=== PATIENT | male | born 1945 | race Asian ===

== ENCOUNTER 2018-06-04 04:53 | Inpatient (IN) | payer MEDICARE ==
[~2018-06-04] VITALS: Ht 165.1 cm; Wt 63.2 kg
[2018-06-04] MEDS ORDERED: ADALAT20 MG ORAL (05:05)
[2018-06-04] MEDS ORDERED: NORMODYNE300 MG ORAL (05:05)
[2018-06-04] MEDS ORDERED: SEROQUEL50 MG ORAL (05:05)
[2018-06-04 05:15] VITALS: BP 148/90
--- NOTE | 2018-06-04 05:15 | NUR ---
ED Nurse Note: Patient BIBA from home with c/o focal seizure. Patient eyes are twitching. Patient eyes are not tracking movement. Patient does not respond to pain. Patient pupils are equal and round but do not respond to light. Per patient's last known well time was 0000 on 06/04/2018. Patient has missed last 2 dialysis appointments. Patient's checked on patient at 0400 and noticed patient to be altered. Patient has equal but weak strength in all extremities. Patient does not respond to pain. Patient seen by JENNIFER at bedside.
--- NOTE | 2018-06-04 05:15 | NUR ---
ED Nurse Note: Patient eyes have deviation towards the right side.
--- NOTE | 2018-06-04 05:20 | NUR ---
ED Nurse Note: Patient taken for head CT with David rojas and clinical staff anesthesiologist.
--- NOTE | 2018-06-04 05:30 | NUR ---
ED Nurse Note: IV access established and blood sent to lab.
[2018-06-04 05:55] LABS: HEMATOCRIT 35.3 % (42.0-52.0); HEMOGLOBIN 11.8 G/DL (14.2-18.0); MEAN CORPUSCULAR VOLUME 90 FL (80-99); PLATELET COUNT 206 K/UL (150-450); RED BLOOD COUNT 3.92 M/UL (4.70-6.10); RED CELL DISTRIBUTION WIDTH 14.2 % (11.6-14.8); WHITE BLOOD COUNT 10.4 K/UL (4.8-10.8)
--- NOTE | 2018-06-04 05:56 | Diagnostic Imaging Report ---
EXAM: CT Head Without Intravenous Contrast CLINICAL HISTORY: CVA TECHNIQUE: Axial computed tomography images of the head/brain without intravenous contrast. CTDI is 70 mGy and DLP is 1463 mGy-cm. One or more of the following dose reduction techniques were used: automated exposure control, adjustment of the mA and/or kV according to patient size, use of iterative reconstruction technique. COMPARISON: No relevant prior studies available. FINDINGS: Brain: There is subarachnoid hemorrhage identified at the interhemispheric fissure. Subdural hematoma also noted along the falx at the interhemispheric fissure. At the left temporal region there is evidence of subarachnoid hemorrhage around a low-density lesion which measures 2.1 x 2.2 cm. There is age-related cerebral volume loss. There is chronic small vessel ischemic disease. Midline shift: No midline shift. Ventricles: Unremarkable. No ventriculomegaly. Bones/joints: Unremarkable. No acute fracture. Soft tissues: Unremarkable. Sinuses: Unremarkable as visualized. No acute sinusitis. Mastoid air cells: Unremarkable as visualized. No mastoid effusion. IMPRESSION: 1. Subarachnoid hemorrhage seen along the fissure for the interhemispheric fissure as well as the left temporal region. Low- density lesion in the left temporal region is identified. MRI of the brain with intravenous contrast suggested for further assessment. 2. Parafalcine subdural hematoma. <MYCVCSECTION> Critical Value Communications 06/04/18 05:59 Call Doctor Regarding Intracranial Hemorrhage, called Romina TEIXEIRA on 06/04 05:58 (-07:00)
[2018-06-04] MEDS ORDERED: levETIRAcetam 1,000mg/NS100ml 100 ML IVPB ONE (06:15)
--- NOTE | 2018-06-04 06:19 | Emergency Room Report ---
History of Present Illness General Chief Complaint: Seizure Source: Family Member, EMS (Floyd Ambrosio MD) Present Illness HPI 72-year-old male presents ED for evaluation. Brought in by EMS status post seizure. at bedside states that she noticed patient to be altered around 4 AM. States last known well time was around midnight. EMS noted that patient had general tonic-clonic seizure activity and was given Versed. Upon arrival patient is not responsive. Gaze to the right. No known history of seizures. History of end-stage renal disease. On dialysis. missed last 2 dialysis sessions. Upon arrival patient no signs of distress. No other aggravating relieving factors. No other associated symptoms (Floyd Ambrosio MD) Allergies: Coded Allergies: No Known Allergies (Unverified , 06/04/18) Patient History Past Medical History: HTN, renal disease, dialysis Past Surgical History: none Pertinent Family History: none Social History: Denies: smoking, alcohol use, drug use Immunizations: UTD Reviewed Nursing Documentation: PMH: Agreed (Floyd Ambrosio MD) Nursing Documentation-PMH Hx Hypertension: Yes Hx Diabetes: Yes Hx Dialysis: Yes - [facility], Sat. L arm AV shunt Hx Seizures: Yes - onset seizure at Jun 04 2018 (Floyd Ambrosio MD) Review of Systems All Other Systems: limited (Floyd Ambrosio MD) Physical Exam Vital Signs Date Time Temp Pulse Resp B/P (MAP) Pulse Ox O2 Delivery O2 Flow Rate FiO2 06/04/18 04:54 98.1 86 20 148/90 98 Room Air Sp02 EP Interpretation: reviewed, normal General Appearance: alert, other - nonverbal Head: normocephalic Eyes: bilateral eye normal inspection, bilateral eye other - fixed pupils ENT: normal ENT inspection Neck: normal inspection Respiratory: chest non-tender, lungs clear, normal breath sounds, speaking full sentences Cardiovascular #1: regular rate, rhythm, no edema Gastrointestinal: normal inspection Rectal: deferred Genitourinary: no CVA tenderness Musculoskeletal: normal inspection Neurologic: other - fixed gaze to right Psychiatric: other - nonverbal Skin: normal inspection Lymphatic: normal inspection (Floyd Ambrosio MD) Medical Decision Making Medicare Attestation The history of Roslyn Pineda has been reviewed and management options for him have been examined and discussed by Floyd Ambrosio. I have personally examined and interviewed the patient. (Floyd Ambrosio MD) Diagnostic Impression: Primary Impression: Subarachnoid bleed Additional Impressions: Subdural hematoma New onset seizure ER Course Patient was noted to have new onset seizure. Laboratory testing showed evidence of hyponatremia. Patient had missed dialysis. Patient was started on IV Keppra. Patient was given rectal Kayexalate. Dr. Nima Art was contacted for inpatient management and was notified of patient's laboratory testing at 6: 49. I left a message with Dr. Chaves's voicemail for neurology consult. (Gabo Kidd MD) EKG Diagnostic Results Rate: normal Rhythm: NSR ST Segments: other ASA given to the pt in ED: No (Floyd Ambrosio MD) Rhythm Strip Diag. Results EP Interpretation: yes Rhythm: NSR, no PVC's, no ectopy (Floyd Ambrosio MD) CT/MRI/US Diagnostic Results CT/MRI/US Diagnostic Results : Imaging Test Ordered: CT head Impression 1. Subarachnoid hemorrhage seen along the fissure for the interhemispheric fissure as well as the left temporal region. Low-density lesion in the left temporal region is identified. MRI of the brain with intravenous contrast suggested for further assessment. 2. Parafalcine subdural hematoma. (Floyd Ambrosio MD) Last Vital Signs Date Time Temp Pulse Resp B/P (MAP) Pulse Ox O2 Delivery O2 Flow Rate FiO2 06/04/18 05:15 86 20 Room Air 06/04/18 05:15 98.1 148/90 98 Status: unchanged (Floyd Ambrosio MD) Disposition: ADMITTED INPATIENT Condition: Serious Referrals: [facility] (PCP) Floyd Ambrosio MD Jun 04, 2018 06:19 Gabo Kidd MD Jun 04, 2018 07:11
[2018-06-04 06:25] LABS: ALANINE AMINOTRANSFERASE 17 U/L (12-78); ALBUMIN 3.5 G/DL (3.4-5.0); ALBUMIN/GLOBULIN RATIO 0.6 (1.0-2.7); ALKALINE PHOSPHATASE 146 U/L (46-116); ANION GAP 16 mmol/L (5-15); ASPARTATE AMINO TRANSFERASE 11 U/L (15-37); BILIRUBIN,TOTAL 1.1 MG/DL (0.2-1.0); BLOOD UREA NITROGEN 114 mg/dL (7-18); CALCIUM 8.9 MG/DL (8.5-10.1); CARBON DIOXIDE 22 MMOL/L (21-32); CHLORIDE 86 MMOL/L (98-107); CHOLESTEROL 149 MG/DL (< 200); CREATININE 10.7 MG/DL (0.55-1.30); HDL CHOLESTEROL 59 MG/DL (40-60); SODIUM 124 MMOL/L (136-145); TRIGLYCERIDES 91 MG/DL (30-150)
[2018-06-04 06:29] LABS: INR 1.1 (0.9-1.1)
--- NOTE | 2018-06-04 06:30 | NUR ---
ED Nurse Note: Patient eyes are no longer deviating to the right, patient pupils are now reactive to light.
--- NOTE | 2018-06-04 06:33 | NUR ---
ED Nurse Note: Patient is moving around. Not responding to voice, but responsive to pain.
[2018-06-04 06:42] VITALS: BP 131/42
[2018-06-04 06:42] LABS: POTASSIUM 7.2 MMOL/L (3.5-5.1)
[2018-06-04 06:43] LABS: BILIRUBIN,DIRECT 0.5 MG/DL (0.0-0.3)
[2018-06-04] MEDS ORDERED: Sodium Polystyrene Sulfonate Enema RECTAL ONE (07:00)
--- NOTE | 2018-06-04 07:37 | NUR ---
ED Nurse Note: Gave telephone report to PATTI Almendarez. Bed unavailable. Will try again.
--- NOTE | 2018-06-04 07:47 | NUR ---
ED Nurse Note: Tried calling for bed, bed unavailable.
--- NOTE | 2018-06-04 08:36 | NUR ---
ED Nurse Note: Transferred pt up to SDU unit. No acute distress noted. Left Er w/ all belongings.
--- NOTE | 2018-06-04 08:49 | NUR ---
NURSE NOTES: received patient report from rusty rn from er. patient came in via gurney assisted by 2 rns. case monitor initiated. vital signs taken and recorded.not in acute distress. mild agitation noted. skin assessment done. no ulcerations, no open skin issues. under the care of dr scott.bed is low and locked for safety. will follow plan of care.
[2018-06-04 09:00] VITALS: BP 135/59
--- NOTE | 2018-06-04 09:04 | NUR ---
NURSE NOTES: left a message to dr scott regarding this patients admission orders.will keep on monitoring.
--- NOTE | 2018-06-04 10:30 | NUR ---
NURSE NOTES: family members and patient refused HD today. dr burnham ordrered to cancel HD. will keep on monitoring.
--- NOTE | 2018-06-04 10:44 | Consultation ---
Consult Note Consult Note ESRD SZ Hematoma: Subdyral and sub Arachnoid Assessment/Plan Comfort care- family decline # [id number] Haresh Christianson MD Jun 04, 2018 10:44
--- NOTE | 2018-06-04 10:49 | NUR ---
NURSE NOTES: family members changed resuscitation code from dnr/dni to dnr with comfort measures.left a message to dr scott regarding this.
[2018-06-04 12:00] VITALS: BP 140/66
--- NOTE | 2018-06-04 13:26 | NUR ---
NURSE NOTES: dr scott made aware of the patients request to remove impacted cerumen in the right ear. dr scott ordered dr dickerson on the case.
--- NOTE | 2018-06-04 14:30 | Consultation ---
DATE OF CONSULTATION: 06/04/2018 RENAL CONSULTATION CONSULTING PHYSICIAN: Haresh Christianson M.D. HISTORY OF PRESENT ILLNESS: I was asked by Dr. Murry, to evaluate the patient for dialysis management. He is a 72-year-old male, who presented to emergency room department by paramedics for seizure and the ER note states that the patient has history of hypertension and end-stage renal disease, on dialysis and apparently there is also a history of renal cell carcinoma with metastasis. The patient has not received any dialysis for the past two sessions. Originally, the note of the emergency room stated that the would like to have continued dialysis so a stat dialysis was ordered and I rushed to see the patient in room 244 where the patient's family were in the room and the patient lying in bed. PHYSICAL EXAMINATION: VITAL SIGNS: Blood pressure of 107/53, pulse rate of 55, temperature of 98.2, and respiratory rate of 24. GENERAL: The patient is pale, weak, nonresponsive. HEART: Bradycardic. Irregular. LUNGS: Bilateral rhonchi. ABDOMEN: Slightly distended. LABORATORY DATA: The initial laboratory data, hemoglobin 11.8. Potassium 7.2, BUN 114, creatinine 10.7, and glucose of 324, with calcium of 8.9. IMPRESSION AND PLAN: The patient has end-stage renal disease, missed two dialysis and in need of urgent dialysis for hyperkalemia. At the same time, the patient was found to have subdural hematoma and subarachnoid bleed and new onset of seizure. The family in the room stated to me that it has been the patient's wishes not to stop dialysis this is why he did not show up for the last two dialysis sessions and when I presented them with the current state of the patient and the need for dialysis, they declined and stated that we would like to respect the patient's wishes and withhold dialysis. So the emergency dialysis that I ordered initially was canceled and it appears that the patient will continue to be on comfort measures. So, at this point, I do not have any further suggestions from renal standpoint of view to add to this patient and we will either stop following or follow as needed. Haresh Christianson M.D. DR: GISELLE JOB#: [id number] CC:
--- NOTE | 2018-06-04 14:37 | NUR ---
NURSE NOTES: left a message to claudia dickerson regarding patient impacted cerumen of the right ear. awaits callback and new order as of this time.
[2018-06-04 16:00] VITALS: BP 131/65
--- NOTE | 2018-06-04 16:08 | Consultation ---
History of Present Illness General Chief Complaint: Seizure Present Illness Allergies: Coded Allergies: No Known Allergies (Unverified , 06/04/18) Medication History Scheduled Labetalol HCl (Labetalol HCl), 300 MG ORAL EVERY 12 HOURS, (Reported) Nifedipine (Nifedipine*), 30 MG ORAL EVERY 8 HOURS, (Reported) Quetiapine Fumarate (Seroquel), 50 MG ORAL DAILY, (Reported) Patient History Healthcare decision maker Resuscitation status Do Not Resuscitate Advanced Directive on File No Physical Exam Last 24 Hour Vital Signs Date Time Temp Pulse Resp B/P (MAP) Pulse Ox O2 Delivery O2 Flow Rate FiO2 06/04/18 15:19 53 06/04/18 12:00 96.3 57 26 140/66 (90) 06/04/18 11:50 Nasal Cannula 3.0 06/04/18 11:45 53 06/04/18 09:05 56 06/04/18 09:04 Nasal Cannula 2.0 06/04/18 09:00 96.4 53 26 135/59 (84) 06/04/18 08:36 98.2 55 24 107/53 90 Simple Mask 10.0 06/04/18 06:42 98.1 54 19 131/42 98 Room Air 06/04/18 05:15 86 20 Room Air 06/04/18 05:15 98.1 86 20 148/90 98 Room Air 06/04/18 04:54 98.1 86 20 148/90 98 Room Air Intake and Output 06/03/18 06/04/18 19:00 07:00 Intake Total 0 ml Balance 0 ml Intake Oral 0 ml Laboratory Tests Test 06/04/18 05:45 White Blood Count 10.4 K/UL (4.8-10.8) Red Blood Count 3.92 M/UL (4.70-6.10) L Hemoglobin 11.8 G/DL (14.2-18.0) L Hematocrit 35.3 % (42.0-52.0) L Mean Corpuscular Volume 90 FL (80-99) Mean Corpuscular Hemoglobin 30.2 PG (27.0-31.0) Mean Corpuscular Hemoglobin Concent 33.6 G/DL (32.0-36.0) Red Cell Distribution Width 14.2 % (11.6-14.8) Platelet Count 206 K/UL (150-450) Mean Platelet Volume 6.1 FL (6.5-10.1) L Neutrophils (%) (Auto) % (45.0-75.0) Lymphocytes (%) (Auto) % (20.0-45.0) Monocytes (%) (Auto) % (1.0-10.0) Eosinophils (%) (Auto) % (0.0-3.0) Basophils (%) (Auto) % (0.0-2.0) Differential Total Cells Counted 100 Neutrophils % (Manual) 90 % (45-75) H Lymphocytes % (Manual) 7 % (20-45) L Monocytes % (Manual) 3 % (1-10) Eosinophils % (Manual) 0 % (0-3) Basophils % (Manual) 0 % (0-2) Band Neutrophils 0 % (0-8) Platelet Estimate Adequate Platelet Morphology Normal Red Blood Cell Morphology Normal Prothrombin Time 11.5 SEC (9.30-11.50) Prothromb Time International Ratio 1.1 (0.9-1.1) Activated Partial Thromboplast Time 31 SEC (23-33) Sodium Level 124 MMOL/L (136-145) L Potassium Level 7.2 MMOL/L (3.5-5.1) *H Chloride Level 86 MMOL/L (98-107) L Carbon Dioxide Level 22 MMOL/L (21-32) Anion Gap 16 mmol/L (5-15) H Blood Urea Nitrogen 114 mg/dL (7-18) H Creatinine 10.7 MG/DL (0.55-1.30) H Estimat Glomerular Filtration Rate mL/min (>60) Glucose Level 324 MG/DL (74-106) H Calcium Level 8.9 MG/DL (8.5-10.1) Total Bilirubin 1.1 MG/DL (0.2-1.0) H Direct Bilirubin 0.5 MG/DL (0.0-0.3) H Aspartate Amino Transf (AST/SGOT) 11 U/L (15-37) L Alanine Aminotransferase (ALT/SGPT) 17 U/L (12-78) Alkaline Phosphatase 146 U/L (46-116) H Troponin I 0.060 ng/mL (0.000-0.056) Total Protein 9.8 G/DL (6.4-8.2) H Albumin 3.5 G/DL (3.4-5.0) Globulin 6.3 g/dL Albumin/Globulin Ratio 0.6 (1.0-2.7) L Triglycerides Level 91 MG/DL (30-150) Cholesterol Level 149 MG/DL (< 200) LDL Cholesterol 83 mg/dL (<100) HDL Cholesterol 59 MG/DL (40-60) Cholesterol/HDL Ratio 2.5 (3.3-4.4) L Height (Feet): 5 Height (Inches): 5.00 Weight (Pounds): 140 Medications Current Medications Medications (Trade) Dose Ordered Sig/Montez Route PRN Reason Start Time Stop Time Status Last Admin Dose Admin Levetiracetam 100 ml @ 400 mls/hr Q12HR IVPB 06/04/18 21:00 07/04/18 20:59 Assessment/Plan Assessment/Plan Hematology/Onc Consult Chief Complaint: Seizure Source: Family Member, EMS RFC: Temporal lone lesion, hyperproteinemia DOS: 06/04/18 REQ MD: Nima Murry HPI 72-year-old male presents ED for evaluation. Brought in by EMS status post seizure. at bedside states that she noticed patient to be altered around 4 AM. States last known well time was around midnight. EMS noted that patient had general tonic-clonic seizure activity and was given Versed. Upon arrival patient is not responsive. Gaze to the right. No known history of seizures. History of end-stage renal disease. On dialysis. missed last 2 dialysis sessions. Upon arrival patient no signs of distress. No other aggravating relieving factors. No other associated symptoms, per family they do not want dialysis, has been seen by renal, and onc consulted for elev protein and brain lesion Allergies: No Known Allergies (Unverified , 06/04/18) Past Medical History: HTN, renal disease, dialysis Past Surgical History: none Pertinent Family History: none Social History: Denies: smoking, alcohol use, drug use Immunizations: UTD Reviewed Nursing Documentation: PMH: Agreed Hx Hypertension: Yes Hx Diabetes: Yes Hx Dialysis: Yes - Tue,Thur, Sat. L arm AV shunt Hx Seizures: Yes - onset seizure at Jun 04 2018 Review of Systems: limited PE Vital Signs Date Time Temp Pulse Resp B/P (MAP) Pulse Ox O2 Delivery O2 Flow Rate FiO2 06/04/18 04:54 98.1 86 20 148/90 98 Room Air Sp02 EP Interpretation: reviewed, normal General Appearance: alert, other - nonverbal Head: normocephalic Eyes: bilateral eye normal inspection, fixed pupils ENT: normal ENT inspection Neck: normal inspection Respiratory: chest non-tender, lungs clear, normal breath s Cardiovascular: regular rate, rhythm, no edema Gastrointestinal: normal inspection Rectal: deferred Genitourinary: no CVA tenderness Neurologic: other - fixed gaze to right Psychiatric: other - nonverbal Skin: normal inspection Lymphatic: normal inspection Labs reviewed Meds reviewed Assessment and Recs: # Temporal lobe lesion, on. Low-density lesion in the left temporal region is identified. MRI of the braim with intravenous contrast suggested for further assessmen --> as per neurology evaluation, Dr. Chaves consulted --> in addition, on antiepileptic medications for patient's seizures --> restart meds as needed # Hyperproteinemia, could be 2/2 inflammatory process versus r/o myeloma or other protein secretory disease --> at this time, minimize extesnive lab tests but obtain a spep # Subarachnoid bleed w/ Subdural hematoma with New onset seizure --> as per neuro eval # ESRD requiring HD --> patient and his family have been refusing HD --> comofrt care measures unless notified otherwise # Hyponatremia as per renal The timing of this note does not necessarily reflect the time of the patient was seen. Greatly appreciate consultation! Cezar Eller MD Jun 04, 2018 16:08
--- NOTE | 2018-06-04 16:34 | NUR ---
NURSE NOTES: left a message to dr squires regarding patients HR on the 402 & 50s as per order by dr scott. awaits callback and new order.
--- NOTE | 2018-06-04 16:39 | NUR ---
NURSE NOTES: dr squires called back and ordered to hold all BP meds and just observe..will take note and carry out.
--- NOTE | 2018-06-04 19:15 | NUR ---
NURSE NOTES: Pt Report received from Tanesha ARMSTRONG. Pt appears to be resting comfortably in bed, no distress noted. Pt is alert and oriented times 1. Pt is NPO except for Medications. Pt has a Left upper arm fistula with buit and thrill noted. Pt has a night monitor is on and active, no signs or symptoms of cardiac distress noted. Pt is on a Nasal Canula 3L with no respiratory distress noted, saturating at 99 percent. Pt has a R forearm 20G that is patent and able to flush, no abnormalities noted. Pt is anuric and has a condom catheter that is in tact and able to drain to gravity. Family members are at bed side as of now. Will continue plan of care.
--- NOTE | 2018-06-04 19:26 | NUR ---
HAND-OFF: Report given to giorgio kitchen.
[2018-06-04 20:00] VITALS: BP 124/52
[2018-06-04] MEDS ORDERED: levETIRAcetam 500mg/NS100ml 100 ML IVPB SCH (21:00)
[2018-06-05] VITALS: BP 140/67
--- NOTE | 2018-06-05 03:30 | Consultation ---
DATE OF CONSULTATION: 06/04/2018 NEUROLOGIC CONSULTATION: CONSULTING PHYSICIAN: Ilan Chaves M.D. 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 The patient was admitted with a chief complaint of 1 seizure. HISTORY OF PRESENT ILLNESS: The patient never had a seizure before. He has a history of head injuries. He had had a stroke 4 to 5 years ago with some abnormal movements on the left side, little unclear. Recently, there is no fever and chills and the patient has become more confused in the last 2 to 3 days since he refused dialysis. Four days ago, he had a headache. This morning at around 4 a.m., he turned his head to the right side and he had some olesya-clonic movement lasting 30 seconds. He may have had couple of repeat seizures. The EMS noted that the patient did have a generalized tonic-clonic seizure and was given Versed. He was brought to this hospital unresponsive. CT scan of the brain, noncontrast, was abnormal, revealed subarachnoid hemorrhage in the interhemispheric fissure and subdural hematoma, noted along the falx in the interhemispheric fissure. There is evidence of subarachnoid hemorrhage around the low-density lesion, which measures 2.1 x 2.2 cm. Age-related volume loss. There is no midline shift. The patient had a hemoglobin of 11.8 with a platelet count of 206,000, white count 10,400. He had a left shift. His chemistries were normal except for the following: His potassium is 7.2, his chloride was 86, his anion gap was 16, his BUN was 114, his creatinine was 10.7, his glucose was 324, total bilirubin was 1.1 with direct bilirubin of 0.5, AST was 11, alkaline phosphatase was 146. His troponin was 0.060. Total protein was 9.8. His cholesterol/HDL ratio was 2.5. PT and PTT were normal. The patient's EEG revealed possible left atrial enlargement, nonspecific intraventricular block, nonspecific T-wave abnormality, and sinus arrhythmia with first-degree AV block. The chest x-ray was done. The patient was given lorazepam 1000 mg 1 dose. No history of peripheral neuropathy in this patient. No other history could be obtained. The patient's mother and father of strokes. PAST MEDICAL HISTORY/PAST MEDICAL ILLNESSES: 1. 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 2. Renal carcinoma, see above. 3. Hypertension and diabetes with end-stage renal disease, see above. 4. Deafness, especially in the right ear with impaction. 5. Chronic subdural hematoma, see above. . FAMILY HISTORY: See above. His siblings are "old" and still alive. GAIT: He had a left . REVIEW OF SYSTEMS: . Rest of the review of systems is noncontributory. PHYSICAL EXAMINATION: GENERAL: He is a well-developed, chronically ill-appearing male, lying in bed, moving on his left side. The patient is a [place]. VITAL SIGNS: Blood pressure 107/53, his pulse is 65, his temperature is 98.2 degrees, respiration rate is 24, pulse oximetry is between 90 to 98 on nasal cannula. HEENT: Examination of the head is difficult to examine. He has poor dentition. NECK: Stiff in all directions. The is no obvious pain. His carotids are at least +1 to +2 on the left, on the right is difficult to evaluate. There is no bruit appreciated. LUNGS: Clear to auscultation. CARDIOVASCULAR: PMI is not felt. JVP is not seen. The patient had normal S1. S2 is physiologically split. There is no S3, S4, murmurs, or rubs appreciated. ABDOMEN: The abdomen is soft and nontender. We could be appreciate any . BACK: There is no tenderness to percussion. EXTREMITIES: The peripheral pulses are decreased in the extremities. There is no edema noted. NEUROLOGIC: MENTAL STATUS: The patient is lethargic, but opens his eyes. No increased . There is no response to . CRANIAL NERVE EXAMINATION: CRANIAL NERVE II: Visual lindsay are probably intact grossly to confrontation. CRANIAL NERVES III, IV, AND : The eyes are in the midline. Doll's eye could not done. Pupils are about 4 mm, round, and briskly reactive. CRANIAL NERVE V: Corneal sensation appears to be intact. CRANIAL NERVE VII: Eye closure could not be tested on the right side. Otherwise, face appeared to be symmetrical. CRANIAL NERVES VIII THROUGH XII: Could not be tested. . MUSCLE EXAMINATION: Muscle bulk is symmetrically decreased. Tone is increased in all 4 extremities. all 4 extremities with upgoing toes and can move all 4 extremities. REFLEXES: 0 in the upper and lower extremities with upgoing toes and testing for Babinski response. SENSORY: Decreased to deep pain distally in the extremity. IMPRESSION: This patient has rather metastatic lesion . The seizure that he had was probably related to his brain along with his end-stage renal disease and/or chronic subdurals or acute hemorrhage. No further workup is necessary. PLAN: 1. I will speak to you about this case. 2. Continue Keppra for the time being 250 mg b.i.d. Ilan Chaves MD DR: SHAWNA JOB#: [id number] CC:
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
--- NOTE | 2018-06-05 03:30 | Consultation ---
DATE OF CONSULTATION: 06/04/2018 NOTE: POOR AUDIO ENDOCRINOLOGY CONSULTATION CONSULTING PHYSICIAN: Cornell Hunter M.D. REASON FOR CONSULTATION: Diabetes management. HISTORY OF PRESENT ILLNESS: The patient is an unfortunate 72-year-old male with a history of end-stage renal disease on hemodialysis, who was brought by EMS status post seizure and noted altered mental status around 4 a.m. and the paramedics state the patient has a tonic-clonic seizure. The patient was admitted to the floor where evaluated by Dr. Christianson, billing typist and apparently the patient's family refusing HD and seeking comfort measures. PAST MEDICAL HISTORY: 1. Hypertension. 2. Diabetes. 3. End-stage renal disease, on hemodialysis. PAST SURGICAL HISTORY: Dialysis access placement. FAMILY HISTORY: Noncontributory. SOCIAL HISTORY: No smoking, alcohol, or drug use. REVIEW OF SYSTEMS: Unobtainable. MEDICATIONS: Reviewed and reconciled. LABORATORY DATA: Sodium 124, potassium 7.2, chloride 86, bicarb 22, BUN 114, creatinine of 7.7, glucose of 324, calcium of 8.9. Alkaline phosphatase 146. Total protein 9.8. Troponin 0.06. CBC shows WBC of 10, PHYSICAL EXAMINATION: VITAL SIGNS: Blood pressure is 107/52, pulse 80, temperature of 98.2, respiratory rate of 18. HEENT: Pupils are reactive. NECK: No JVD. HEART: RRR. LUNGS: Decreased breath sounds. ABDOMEN: Positive bowel sounds. EXTREMITIES: Positive for edema. DIAGNOSES: 1. Diabetes, out of control with a glucose of 324. 2. Severe hyperkalemia. 3. End-stage renal disease, on hemodialysis. 4. Seizure. DISCUSSION: The patient is NPO. The patient's family agreed to comfort care therefore will not order insulin coverage, but if not we will treat the patient with sliding scale insulin in order to keep the blood sugar in range and add basal insulin for further control. We will wait for the patient's final family decision and for now, we will not put any insulin orders. Thank you, Dr. Murry, for the courtesy of this consultation. Cornell Hunter M.D. DR: GALINDO JOB#: [id number] CC: SHERRY
--- NOTE | 2018-06-05 03:55 | NUR ---
HAND-OFF: Report given to Tyson Monsalve Med- Surg.
[2018-06-05 04:00] VITALS: BP 127/79
--- NOTE | 2018-06-05 04:45 | NUR ---
NURSE NOTES: Received report from [facility]. Patient in bed, asleep, nonverbal. Nasal cannula 3 liters. No s/s of pain or discomfort noted. Skin is warm and dry to touch. Abdomen is soft and non distended. Bed in low and locked position. IV site noted. Family is at bedside. Call light is at bedside. Will continue plan of care.
--- NOTE | 2018-06-05 06:44 | General Progress Note ---
Assessment/Plan Problem List: (1) Hyperglycemia ICD Codes: R73.9 - Hyperglycemia, unspecified SNOMED: 51850935 (2) ESRD (end stage renal disease) ICD Codes: N18.6 - End stage renal disease SNOMED: 74627280 (3) Subdural hematoma ICD Codes: S06.5X9A - Traumatic subdural hemorrhage with loss of consciousness of unspecified duration, initial encounter SNOMED: 473816752 (4) Subarachnoid bleed ICD Codes: I60.9 - Nontraumatic subarachnoid hemorrhage, unspecified SNOMED: 749217680 (5) New onset seizure ICD Codes: R56.9 - Unspecified convulsions SNOMED: 62952813 (6) CVA (cerebral vascular accident) ICD Codes: I63.9 - Cerebral infarction, unspecified SNOMED: 588902574 (7) Impacted cerumen of right ear ICD Codes: H61.21 - Impacted cerumen, right ear SNOMED: 94471016 (8) Bradycardia ICD Codes: R00.1 - Bradycardia, unspecified SNOMED: 07243697 Assessment/Plan did not receive dialysis plan for comfort measures noted no need to check glucose or insulin coverage Subjective ROS Limited/Unobtainable: Yes Allergies: Coded Allergies: No Known Allergies (Unverified , 06/04/18) Subjective events noted Objective Last 24 Hour Vital Signs Date Time Temp Pulse Resp B/P (MAP) Pulse Ox O2 Delivery O2 Flow Rate FiO2 06/05/18 04:00 96.9 57 17 127/79 (95) 99 06/05/18 00:00 Nasal Cannula 3.0 06/05/18 00:00 97.6 58 24 140/67 (91) 100 06/05/18 00:00 54 06/04/18 20:00 Nasal Cannula 3.0 06/04/18 20:00 52 06/04/18 20:00 97.6 52 24 124/52 (76) 100 06/04/18 16:00 Nasal Cannula 3.0 06/04/18 16:00 97.6 53 22 131/65 (87) 99 06/04/18 15:19 53 06/04/18 12:00 96.3 57 26 140/66 (90) 06/04/18 11:50 Nasal Cannula 3.0 06/04/18 11:45 53 06/04/18 09:05 56 06/04/18 09:04 Nasal Cannula 2.0 06/04/18 09:00 96.4 53 26 135/59 (84) 06/04/18 08:36 98.2 55 24 107/53 90 Simple Mask 10.0 Intake and Output 06/04/18 06/05/18 19:00 07:00 Intake Total 100 ml Output Total 0 ml 0 ml Balance 0 ml 100 ml IV Total 100 ml Output Urine Total 0 ml 0 ml # Bowel Movements 7 2 Height (Feet): 5 Height (Inches): 5.00 Weight (Pounds): 140 General Appearance: lethargic Neck: normal alignment Cardiovascular: normal rate Respiratory/Chest: decreased breath sounds Abdomen: normal bowel sounds Objective Current Medications Medications (Trade) Dose Ordered Sig/Montez Route PRN Reason Start Time Stop Time Status Last Admin Dose Admin Levetiracetam 100 ml @ 400 mls/hr Q12HR IVPB 06/05/18 09:00 07/04/18 20:59 Cornell Hunter MD Jun 05, 2018 06:44
--- NOTE | 2018-06-05 07:08 | NUR ---
HAND-OFF: Report given to PATTI Bautista.
[2018-06-05 08:00] VITALS: BP 137/72
--- NOTE | 2018-06-05 09:04 | Consultation ---
History of Present Illness General Date patient seen: Jun 05, 2018 Present Illness Allergies: Coded Allergies: No Known Allergies (Unverified , 06/04/18) Medication History Scheduled Labetalol HCl (Labetalol HCl), 300 MG ORAL EVERY 12 HOURS, (Reported) Nifedipine (Nifedipine*), 30 MG ORAL EVERY 8 HOURS, (Reported) Quetiapine Fumarate (Seroquel), 50 MG ORAL DAILY, (Reported) Patient History Healthcare decision maker Resuscitation status Do Not Resuscitate Advanced Directive on File No Physical Exam Last 24 Hour Vital Signs Date Time Temp Pulse Resp B/P (MAP) Pulse Ox O2 Delivery O2 Flow Rate FiO2 06/05/18 08:00 97.7 82 17 137/72 (93) 98 06/05/18 04:00 96.9 57 17 127/79 (95) 99 06/05/18 00:00 Nasal Cannula 3.0 06/05/18 00:00 97.6 58 24 140/67 (91) 100 06/05/18 00:00 54 06/04/18 20:00 Nasal Cannula 3.0 06/04/18 20:00 52 06/04/18 20:00 97.6 52 24 124/52 (76) 100 06/04/18 16:00 Nasal Cannula 3.0 06/04/18 16:00 97.6 53 22 131/65 (87) 99 06/04/18 15:19 53 06/04/18 12:00 96.3 57 26 140/66 (90) 06/04/18 11:50 Nasal Cannula 3.0 06/04/18 11:45 53 06/04/18 09:05 56 06/04/18 09:04 Nasal Cannula 2.0 06/04/18 09:00 96.4 53 26 135/59 (84) Intake and Output 06/04/18 06/05/18 19:00 07:00 Intake Total 100 ml Output Total 0 ml 0 ml Balance 0 ml 100 ml IV Total 100 ml Output Urine Total 0 ml 0 ml # Bowel Movements 7 2 Height (Feet): 5 Height (Inches): 5.00 Weight (Pounds): 140 Medications Current Medications Medications (Trade) Dose Ordered Sig/Montez Route PRN Reason Start Time Stop Time Status Last Admin Dose Admin Levetiracetam 100 ml @ 400 mls/hr Q12HR IVPB 06/05/18 09:00 07/04/18 20:59 Assessment/Plan Assessment/Plan (1) Temporal lobe lesion (2) Subarachnoid bleed w/ Subdural hematoma (3) Alerted mental status seen dictated Ethan Shine Jun 05, 2018 09:04
[2018-06-05] MEDS: levETIRAcetam 500mg/NS100ml 100 ML IVPB SCH ×2 (09:05→21:07)
--- NOTE | 2018-06-05 10:04 | NUR ---
NURSE NOTES: pt in bed with no sob nor in any form of distress noted. no episode of seizure at this time. side rails are padded. at bedside. bed in lowest position. on NC @3L and tolerated well. will continue to monitor
--- NOTE | 2018-06-05 10:11 | NUR ---
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 NEW ONSET SEIZURE VS: BP 148/90, P 54, T 98.0, RR 24, SpO2 90 on SIMPLE MASK FiO2 10.0 RBC 3.92, Hgb 11.8, Hct 35.3, Na 124, K 7.2, BUN 114, CR 10.7, TROPONIN I 0.[address] IMPRESSION: 1. Subarachnoid hemorrhage seen 2. Parafalcine subdural hematoma. IS:LEVETIRACETAM 100ml IVPB ADMITTED TO MED/SURG DCP: RETURN HOME
[2018-06-05 11:06] LABS: BASOPHILS % (AUTO) 1.1 % (0.0-2.0); EOSINOPHILS % (AUTO) 0.2 % (0.0-3.0); HEMATOCRIT 31.7 % (42.0-52.0); HEMOGLOBIN 10.9 G/DL (14.2-18.0); LYMPHOCYTES % (AUTO) 9.1 % (20.0-45.0); MEAN CORPUSCULAR VOLUME 88 FL (80-99); MONOCYTES % (AUTO) 7.6 % (1.0-10.0); NEUTROPHILS % (AUTO) 82.1 % (45.0-75.0); PLATELET COUNT 181 K/UL (150-450); RED BLOOD COUNT 3.61 M/UL (4.70-6.10); RED CELL DISTRIBUTION WIDTH 14.4 % (11.6-14.8); WHITE BLOOD COUNT 10.1 K/UL (4.8-10.8)
[2018-06-05 11:19] LABS: ALANINE AMINOTRANSFERASE 12 U/L (12-78); ALBUMIN/GLOBULIN RATIO 0.5 (1.0-2.7); ALKALINE PHOSPHATASE 105 U/L (46-116); ANION GAP 19 mmol/L (5-15); ASPARTATE AMINO TRANSFERASE 9 U/L (15-37); BILIRUBIN,TOTAL 1.2 MG/DL (0.2-1.0); BLOOD UREA NITROGEN 137 mg/dL (7-18); CALCIUM 8.5 MG/DL (8.5-10.1); CARBON DIOXIDE 19 MMOL/L (21-32); CHLORIDE 91 MMOL/L (98-107); CREATININE 11.8 MG/DL (0.55-1.30); SODIUM 128 MMOL/L (136-145)
[2018-06-05 11:23] LABS: BILIRUBIN,DIRECT 0.6 MG/DL (0.0-0.3); POTASSIUM 7.3 MMOL/L (3.5-5.1)
--- NOTE | 2018-06-05 11:34 | NUR ---
NURSE NOTES: Received call from lab with high potassium result 7.3. Per MD's note, pt is comfort measure only and no further tx needed at this point. will continue to monitor.
[2018-06-05 12:00] VITALS: BP 151/89
--- NOTE | 2018-06-05 15:01 | Nephrology Progress Note ---
Assessment/Plan Problem List: (1) ESRD (end stage renal disease) (2) Subdural hematoma (3) CVA (cerebral vascular accident) (4) New onset seizure Plan DNR Comfort care Subjective ROS Limited/Unobtainable: No Objective Objective Last 24 Hour Vital Signs Date Time Temp Pulse Resp B/P (MAP) Pulse Ox O2 Delivery O2 Flow Rate FiO2 06/05/18 12:00 97.5 83 17 151/89 (109) 100 06/05/18 09:55 Nasal Cannula 3.0 06/05/18 08:00 97.7 82 17 137/72 (93) 98 06/05/18 04:00 96.9 57 17 127/79 (95) 99 06/05/18 00:00 Nasal Cannula 3.0 06/05/18 00:00 97.6 58 24 140/67 (91) 100 06/05/18 00:00 54 06/04/18 20:00 Nasal Cannula 3.0 06/04/18 20:00 52 06/04/18 20:00 97.6 52 24 124/52 (76) 100 06/04/18 16:00 Nasal Cannula 3.0 06/04/18 16:00 97.6 53 22 131/65 (87) 99 06/04/18 15:19 53 Intake and Output 06/04/18 06/05/18 18:59 06:59 Intake Total 100 ml Output Total 0 ml 0 ml Balance 0 ml 100 ml IV Total 100 ml Output Urine Total 0 ml 0 ml # Bowel Movements 7 2 Laboratory Tests 06/05/18 10:50: White Blood Count 10.1, Red Blood Count 3.61L, Hemoglobin 10.9L, Hematocrit 31.7L, Mean Corpuscular Volume 88, Mean Corpuscular Hemoglobin 30.1, Mean Corpuscular Hemoglobin Concent 34.4, Red Cell Distribution Width 14.4, Platelet Count 181, Mean Platelet Volume 6.6, Neutrophils (%) (Auto) 82.1H, Lymphocytes ( %) (Auto) 9.1L, Monocytes (%) (Auto) 7.6, Eosinophils (%) (Auto) 0.2, Basophils (%) (Auto) 1.1, Sodium Level 128L, Potassium Level 7.3*H, Chloride Level 91L, Carbon Dioxide Level 19L, Anion Gap 19H, Blood Urea Nitrogen 137H, Creatinine 11.8H, Estimat Glomerular Filtration Rate , Glucose Level 194#H, Calcium Level 8.5, Total Bilirubin 1.2H, Direct Bilirubin 0.6H, Aspartate Amino Transf (AST/ SGOT) 9L, Alanine Aminotransferase (ALT/SGPT) 12, Alkaline Phosphatase 105, Total Protein 8.5H, Albumin 3.0L, Globulin 5.5, Albumin/Globulin Ratio 0.5L Height (Feet): 5 Height (Inches): 5.00 Weight (Pounds): 140 General Appearance: no apparent distress Respiratory/Chest: decreased breath sounds Abdomen: distended Haresh Christianson MD Jun 05, 2018 15:01
--- NOTE | 2018-06-05 15:49 | NUR ---
*-* INSURANCE *-* ALL CLINICALS AND REVIEWS HAVE BEEN FAXED TO: JOSEFA VICENTE: CARLOS ALBERTO P- [phone] F- [phone]........REVIEW/CLINICAL
[2018-06-05 16:00] VITALS: BP 153/86
--- NOTE | 2018-06-05 16:58 | General Progress Note ---
Assessment/Plan Assessment: Assessment and Recs: # Temporal lobe lesion, on. Low-density lesion in the left temporal region is identified. MRI of the braim with intravenous contrast suggested for further assessmen --> as per neurology evaluation, Dr. Chaves consulted --> in addition, on antiepileptic medications for patient's seizures --> restart meds as needed --> on comfort care # Hyperproteinemia, could be 2/2 inflammatory process versus r/o myeloma or other protein secretory disease --> at this time, minimize extesnive lab tests but obtain a spep # Subarachnoid bleed w/ Subdural hematoma with New onset seizure --> as per neuro eval # ESRD requiring HD --> patient and his family have been refusing HD --> comofrt care measures unless notified otherwise # Hyponatremia as per renal # Comfort care The timing of this note does not necessarily reflect the time of the patient was seen. Greatly appreciate consultation! Subjective HEENT: Denies: no symptoms, eye pain, blurred vision, tearing, double vision, ear pain, ear discharge, nose pain, nose congestion, throat pain, throat swelling, mouth pain, mouth swelling, other Cardiovascular: Denies: no symptoms, chest pain, edema, irregular heart rate, lightheadedness, palpitations, syncope, other Respiratory: Denies: no symptoms, cough, orthopnea, shortness of breath, SOB with excertion, SOB at rest, sputum, stridor, wheezing, other Gastrointestinal/Abdominal: Denies: no symptoms, abdomen distended, abdominal pain, black stools, tarry stools, blood in stool, constipated, diarrhea, difficulty swallowing, nausea, poor appetite, poor fluid intake, rectal bleeding , vomiting, other Genitourinary: Denies: no symptoms, burning, discharge, frequency, flank pain, hematuria, incontinence, pain, urgency, other Allergies: Coded Allergies: No Known Allergies (Unverified , 06/04/18) Subjective 06/05: on comfort care, no events noted, on ivf Objective Last 24 Hour Vital Signs Date Time Temp Pulse Resp B/P (MAP) Pulse Ox O2 Delivery O2 Flow Rate FiO2 06/05/18 16:00 97.3 88 18 153/86 (108) 100 06/05/18 12:00 97.5 83 17 151/89 (109) 100 06/05/18 09:55 Nasal Cannula 3.0 06/05/18 08:00 97.7 82 17 137/72 (93) 98 06/05/18 04:00 96.9 57 17 127/79 (95) 99 06/05/18 00:00 Nasal Cannula 3.0 06/05/18 00:00 97.6 58 24 140/67 (91) 100 06/05/18 00:00 54 06/04/18 20:00 Nasal Cannula 3.0 06/04/18 20:00 52 06/04/18 20:00 97.6 52 24 124/52 (76) 100 Intake and Output 06/04/18 06/05/18 18:59 06:59 Intake Total 100 ml Output Total 0 ml 0 ml Balance 0 ml 100 ml IV Total 100 ml Output Urine Total 0 ml 0 ml # Bowel Movements 7 2 Laboratory Tests 06/05/18 10:50: White Blood Count 10.1, Red Blood Count 3.61L, Hemoglobin 10.9L, Hematocrit 31.7L, Mean Corpuscular Volume 88, Mean Corpuscular Hemoglobin 30.1, Mean Corpuscular Hemoglobin Concent 34.4, Red Cell Distribution Width 14.4, Platelet Count 181, Mean Platelet Volume 6.6, Neutrophils (%) (Auto) 82.1H, Lymphocytes ( %) (Auto) 9.1L, Monocytes (%) (Auto) 7.6, Eosinophils (%) (Auto) 0.2, Basophils (%) (Auto) 1.1, Sodium Level 128L, Potassium Level 7.3*H, Chloride Level 91L, Carbon Dioxide Level 19L, Anion Gap 19H, Blood Urea Nitrogen 137H, Creatinine 11.8H, Estimat Glomerular Filtration Rate , Glucose Level 194#H, Calcium Level 8.5, Total Bilirubin 1.2H, Direct Bilirubin 0.6H, Aspartate Amino Transf (AST/ SGOT) 9L, Alanine Aminotransferase (ALT/SGPT) 12, Alkaline Phosphatase 105, Total Protein 8.5H, Albumin 3.0L, Globulin 5.5, Albumin/Globulin Ratio 0.5L Height (Feet): 5 Height (Inches): 5.00 Weight (Pounds): 140 Objective tation: reviewed, normal General Appearance: alert, other - nonverbal Head: normocephalic Eyes: bilateral eye normal inspection, fixed pupils ENT: normal ENT inspection Neck: normal inspection Resp: chest non-tender, lungs clear, normal breath s CV: regular rate, rhythm, no edema GI: normal inspection Genitourinary: no CVA tenderness Neurologic: other - fixed gaze to right Psychiatric: other - nonverbal Skin: normal inspection Lymphatic: normal inspection Cezar Eller MD Jun 05, 2018 16:58
--- NOTE | 2018-06-05 19:22 | NUR ---
HAND-OFF: Report given to PATTI Langley.
--- NOTE | 2018-06-05 19:23 | NUR ---
NURSE NOTES: Patient in bed, asleep, nonverbal. Nasal cannula 3 liters. No s/s of pain or discomfort noted. Skin is warm and dry to touch. Abdomen is soft and non distended. Bed in low and locked position. IV site noted. Seizure precautions in place with side rails padded. Son is at bedside. Call light is at bedside. Will continue plan of care.
[2018-06-05 20:00] VITALS: BP 154/81
--- NOTE | 2018-06-05 20:07 | Cardiology Progress Note ---
Assessment/Plan Assessment/Plan The patient is seen and examined, full consult note will be dictated soon. Objective Last 24 Hour Vital Signs Date Time Temp Pulse Resp B/P (MAP) Pulse Ox O2 Delivery O2 Flow Rate FiO2 06/05/18 16:00 97.3 88 18 153/86 (108) 100 06/05/18 12:00 97.5 83 17 151/89 (109) 100 06/05/18 09:55 Nasal Cannula 3.0 06/05/18 08:00 97.7 82 17 137/72 (93) 98 06/05/18 04:00 96.9 57 17 127/79 (95) 99 06/05/18 00:00 Nasal Cannula 3.0 06/05/18 00:00 97.6 58 24 140/67 (91) 100 06/05/18 00:00 54 Intake and Output 06/04/18 06/05/18 19:00 07:00 Intake Total 100 ml Output Total 0 ml 0 ml Balance 0 ml 100 ml IV Total 100 ml Output Urine Total 0 ml 0 ml # Bowel Movements 7 2 Laboratory Tests Test 06/05/18 10:50 White Blood Count 10.1 K/UL (4.8-10.8) Red Blood Count 3.61 M/UL (4.70-6.10) L Hemoglobin 10.9 G/DL (14.2-18.0) L Hematocrit 31.7 % (42.0-52.0) L Mean Corpuscular Volume 88 FL (80-99) Mean Corpuscular Hemoglobin 30.1 PG (27.0-31.0) Mean Corpuscular Hemoglobin Concent 34.4 G/DL (32.0-36.0) Red Cell Distribution Width 14.4 % (11.6-14.8) Platelet Count 181 K/UL (150-450) Mean Platelet Volume 6.6 FL (6.5-10.1) Neutrophils (%) (Auto) 82.1 % (45.0-75.0) H Lymphocytes (%) (Auto) 9.1 % (20.0-45.0) L Monocytes (%) (Auto) 7.6 % (1.0-10.0) Eosinophils (%) (Auto) 0.2 % (0.0-3.0) Basophils (%) (Auto) 1.1 % (0.0-2.0) Sodium Level 128 MMOL/L (136-145) L Potassium Level 7.3 MMOL/L (3.5-5.1) *H Chloride Level 91 MMOL/L (98-107) L Carbon Dioxide Level 19 MMOL/L (21-32) L Anion Gap 19 mmol/L (5-15) H Blood Urea Nitrogen 137 mg/dL (7-18) H Creatinine 11.8 MG/DL (0.55-1.30) H Estimat Glomerular Filtration Rate mL/min (>60) Glucose Level 194 MG/DL (74-106) #H Calcium Level 8.5 MG/DL (8.5-10.1) Total Bilirubin 1.2 MG/DL (0.2-1.0) H Direct Bilirubin 0.6 MG/DL (0.0-0.3) H Aspartate Amino Transf (AST/SGOT) 9 U/L (15-37) L Alanine Aminotransferase (ALT/SGPT) 12 U/L (12-78) Alkaline Phosphatase 105 U/L (46-116) Total Protein 8.5 G/DL (6.4-8.2) H Albumin 3.0 G/DL (3.4-5.0) L Globulin 5.5 g/dL Albumin/Globulin Ratio 0.5 (1.0-2.7) L Keanu Medellin MD Jun 05, 2018 20:07
--- NOTE | 2018-06-05 21:50 | General Progress Note ---
Assessment/Plan Status: deteriorating Plan: family wants comfort measure dnr subarachnoid bleeding very poor prognosis dr watson for morphine orders Subjective ROS Limited/Unobtainable: Yes Allergies: Coded Allergies: No Known Allergies (Unverified , 06/04/18) Objective Last 24 Hour Vital Signs Date Time Temp Pulse Resp B/P (MAP) Pulse Ox O2 Delivery O2 Flow Rate FiO2 06/05/18 20:00 97.8 86 17 154/81 (105) 99 06/05/18 16:00 97.3 88 18 153/86 (108) 100 06/05/18 12:00 97.5 83 17 151/89 (109) 100 06/05/18 09:55 Nasal Cannula 3.0 06/05/18 08:00 97.7 82 17 137/72 (93) 98 06/05/18 04:00 96.9 57 17 127/79 (95) 99 06/05/18 00:00 Nasal Cannula 3.0 06/05/18 00:00 97.6 58 24 140/67 (91) 100 06/05/18 00:00 54 Intake and Output 06/04/18 06/05/18 19:00 07:00 Intake Total 100 ml Output Total 0 ml 0 ml Balance 0 ml 100 ml IV Total 100 ml Output Urine Total 0 ml 0 ml # Bowel Movements 7 2 Laboratory Tests 06/05/18 10:50: White Blood Count 10.1, Red Blood Count 3.61L, Hemoglobin 10.9L, Hematocrit 31.7L, Mean Corpuscular Volume 88, Mean Corpuscular Hemoglobin 30.1, Mean Corpuscular Hemoglobin Concent 34.4, Red Cell Distribution Width 14.4, Platelet Count 181, Mean Platelet Volume 6.6, Neutrophils (%) (Auto) 82.1H, Lymphocytes ( %) (Auto) 9.1L, Monocytes (%) (Auto) 7.6, Eosinophils (%) (Auto) 0.2, Basophils (%) (Auto) 1.1, Sodium Level 128L, Potassium Level 7.3*H, Chloride Level 91L, Carbon Dioxide Level 19L, Anion Gap 19H, Blood Urea Nitrogen 137H, Creatinine 11.8H, Estimat Glomerular Filtration Rate , Glucose Level 194#H, Calcium Level 8.5, Total Bilirubin 1.2H, Direct Bilirubin 0.6H, Aspartate Amino Transf (AST/ SGOT) 9L, Alanine Aminotransferase (ALT/SGPT) 12, Alkaline Phosphatase 105, Total Protein 8.5H, Albumin 3.0L, Globulin 5.5, Albumin/Globulin Ratio 0.5L Height (Feet): 5 Height (Inches): 5.00 Weight (Pounds): 140 General Appearance: lethargic, confused Nima Murry MD Jun 05, 2018 21:50
[2018-06-05] MEDS ORDERED: Albuterol/Ipratropium 3ml neb HHN PRN (23:45)
[2018-06-06] VITALS: BP 155/83
[2018-06-06] MEDS ORDERED: Albuterol/Ipratropium 3ml neb HHN PRN
--- NOTE | 2018-06-06 01:30 | Consultation ---
DATE OF CONSULTATION: 06/05/2018 PAIN MANAGEMENT CONSULTATION CONSULTING PHYSICIAN: Elif Woods M.D. REFERRING PHYSICIAN: Nima Murry M.D. PHYSICIAN LABORATORY MANAGER: Merly Cortes CHIEF COMPLAINT: Subarachnoid bleed with subdural hematoma. HISTORY OF PRESENT ILLNESS: The patient is an unfortunate 72-year-old male who is being seen on the Med/Surg floor of [facility]. The patient was admitted through the emergency room due to seizures which happened on Tuesday at 4 a.m. and was found to have general tonic-clonic seizure activity and was started on Versed. However upon arrival to the emergency room, he was unresponsive, has history of end-stage renal disease; however, has missed two dialysis sessions and found to have temporal lobe lesion due to subarachnoid bleed and subdural hematoma. At this time, the patient is in the bed. is at bedside. We were consulted so the patient would have adequate pain control while here in the hospital although he shows no signs of pain or distress at this time. The patient's also denies the patient having any signs of pain or distress. PAST MEDICAL HISTORY: Hypertension, ESRD on dialysis. SOCIAL HISTORY: As per chart, no smoking tobacco, drinking alcohol, or IV drug abuse. ALLERGIES: No known allergies. MEDICATIONS: nifedipine, Seroquel. REVIEW OF SYSTEM: Unable to obtain due to the patient's mental status. PHYSICAL EXAMINATION: GENERAL: The patient is awake. VITAL SIGNS: Blood pressure 139/72, heart rate is 82, oxygen saturation 98%, respirations 18, temperature 97.8 degrees Fahrenheit. LUNGS: Clear bilaterally. HEART: S1 and S2 are regular. ABDOMEN: Soft and nontender. EXTREMITIES: No cyanosis. No clubbing. No edema. ASSESSMENT AND PLAN: This is a 72-year-old male with temporal lobe lesion, subarachnoid bleed with subdural hematoma, altered mental status. The patient will be continued on Keppra as per the neurologist. No opioid medication needed at this time due to the patient showing no signs of pain. The patient was discussed with Dr. Woods and he concurred. We will follow the patient. Thank you very much for the courtesy of this consultation. Elfi Woods M.D. АНДРЕЙ Cortes DR: Don JOB#: [id number] CC: SHERRY
[2018-06-06] MEDS ORDERED: Albuterol/Ipratropium 3ml neb HHN SCH (03:00)
--- NOTE | 2018-06-06 03:30 | NUR ---
NURSE NOTES: Pt received from outgoing RN Naty Rueda in stable condition. Vitas stable. Pt is on 3L nasal Canula. Pt is on comfort focused care. Pt will be turned q2HRs and cleaned as needed. Pt's son is by bedside. Bed locked low in position,side rails up and call light within reach. Pt will be monitored.
[2018-06-06 04:00] VITALS: BP 151/86
--- NOTE | 2018-06-06 06:39 | NUR ---
NURSE NOTES: Pt is in bed, awake and calm. Pt's son by bedside.
--- NOTE | 2018-06-06 07:30 | NUR ---
HAND-OFF: Report given to Michele Valencia RN.Pt is on comfort care. Pt's and son by bedside.
--- NOTE | 2018-06-06 07:39 | General Progress Note ---
Assessment/Plan Assessment: (1) Temporal lobe lesion (2) Subarachnoid bleed w/ Subdural hematoma (3) Alerted mental status Pt will be continued on current medications. Patient shows no signs of pain or distress at this time Due to this pain management will sign off from patients care, however if patient starts showing signs of pain please do not hesitate to reconsult. D/w Dr. Woods and he concurred. Subjective Date patient seen: Jun 06, 2018 Time patient seen: 06:45 - am ROS Limited/Unobtainable: Yes Allergies: Coded Allergies: No Known Allergies (Unverified , 06/04/18) Subjective Patient is in bed showing no signs of pain or distress. Family at bed side. Son inquiring about morphine drip for comfort care. I explained to patient that our service does not recommend morphine drip and that we recommend patient to be seen by hospice care. Son seems to understand. Objective Last 24 Hour Vital Signs Date Time Temp Pulse Resp B/P (MAP) Pulse Ox O2 Delivery O2 Flow Rate FiO2 06/06/18 04:00 97.8 92 18 151/86 (107) 99 06/06/18 00:02 75 18 97 Nasal Cannula 3.0 32 06/06/18 00:00 97.8 87 17 155/83 (107) 97 06/05/18 23:55 32 06/05/18 23:52 72 16 96 Nasal Cannula 3.0 32 06/05/18 21:00 Nasal Cannula 3.0 06/05/18 20:00 97.8 86 17 154/81 (105) 99 06/05/18 16:00 97.3 88 18 153/86 (108) 100 06/05/18 12:00 97.5 83 17 151/89 (109) 100 06/05/18 09:55 Nasal Cannula 3.0 06/05/18 08:00 97.7 82 17 137/72 (93) 98 Intake and Output 06/05/18 06/06/18 19:00 07:00 Intake Total 100 ml Balance 100 ml IV Total 100 ml # Bowel Movements 1 1 Laboratory Tests 06/05/18 10:50: White Blood Count 10.1, Red Blood Count 3.61L, Hemoglobin 10.9L, Hematocrit 31.7L, Mean Corpuscular Volume 88, Mean Corpuscular Hemoglobin 30.1, Mean Corpuscular Hemoglobin Concent 34.4, Red Cell Distribution Width 14.4, Platelet Count 181, Mean Platelet Volume 6.6, Neutrophils (%) (Auto) 82.1H, Lymphocytes ( %) (Auto) 9.1L, Monocytes (%) (Auto) 7.6, Eosinophils (%) (Auto) 0.2, Basophils (%) (Auto) 1.1, Sodium Level 128L, Potassium Level 7.3*H, Chloride Level 91L, Carbon Dioxide Level 19L, Anion Gap 19H, Blood Urea Nitrogen 137H, Creatinine 11.8H, Estimat Glomerular Filtration Rate , Glucose Level 194#H, Calcium Level 8.5, Total Bilirubin 1.2H, Direct Bilirubin 0.6H, Aspartate Amino Transf (AST/ SGOT) 9L, Alanine Aminotransferase (ALT/SGPT) 12, Alkaline Phosphatase 105, Total Protein 8.5H, Albumin 3.0L, Globulin 5.5, Albumin/Globulin Ratio 0.5L Height (Feet): 5 Height (Inches): 5.00 Weight (Pounds): 140 General Appearance: lethargic EENT: pharynx normal Neck: non-tender, supple Cardiovascular: normal peripheral pulses, normal rate Respiratory/Chest: chest wall non-tender, lungs clear Abdomen: non tender, soft Extremities: non-tender Neurologic: unresponsive Skin: warm/dry Ethan Shine Jun 06, 2018 07:39
--- NOTE | 2018-06-06 07:47 | NUR ---
NURSE NOTES: pt in bed with no sob nor in any form of distress noted. family member at bedside. Breathing regular and unlabored. denies any signs of pain at this time. Will continue to monitor
[2018-06-06 08:00] VITALS: BP 159/94
[2018-06-06] MEDS: Albuterol/Ipratropium 3ml neb HHN PRN (08:06)
[2018-06-06] MEDS: levETIRAcetam 500mg/NS100ml 100 ML IVPB SCH ×2 (08:46→21:29)
--- NOTE | 2018-06-06 09:59 | NUR ---
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 NEW ONSET SEIZURE VS: BP 159/94, P 93, T 97.3, RR 18, SpO2 97 on 3.0L O2 NC IS:ALBUTEROL 3ml HHN LEVETIRACETAM 100ml IVPB MED/SURG STATUS
--- NOTE | 2018-06-06 11:29 | Nephrology Progress Note ---
Assessment/Plan Problem List: (1) ESRD (end stage renal disease) (2) Subdural hematoma (3) CVA (cerebral vascular accident) (4) New onset seizure Plan discussed with Son PRN keanu ordered DNR Comfort care Subjective ROS Limited/Unobtainable: No Objective Objective Last 24 Hour Vital Signs Date Time Temp Pulse Resp B/P (MAP) Pulse Ox O2 Delivery O2 Flow Rate FiO2 06/06/18 09:10 Nasal Cannula 3.0 06/06/18 08:16 80 18 99 Nasal Cannula 3.0 32 06/06/18 08:06 64 16 96 Nasal Cannula 3.0 32 06/06/18 08:00 97.3 93 18 159/94 (115) 99 06/06/18 04:00 97.8 92 18 151/86 (107) 99 06/06/18 00:02 75 18 97 Nasal Cannula 3.0 32 06/06/18 00:00 97.8 87 17 155/83 (107) 97 06/05/18 23:55 32 06/05/18 23:52 72 16 96 Nasal Cannula 3.0 32 06/05/18 21:00 Nasal Cannula 3.0 06/05/18 20:00 97.8 86 17 154/81 (105) 99 06/05/18 16:00 97.3 88 18 153/86 (108) 100 06/05/18 12:00 97.5 83 17 151/89 (109) 100 Intake and Output 06/05/18 06/06/18 19:00 07:00 Intake Total 100 ml Balance 100 ml IV Total 100 ml # Bowel Movements 1 1 Height (Feet): 5 Height (Inches): 5.00 Weight (Pounds): 140 General Appearance: other - grimices when moving Haresh Christianson MD Jun 06, 2018 11:29
[2018-06-06 12:00] VITALS: BP 153/80
--- NOTE | 2018-06-06 13:22 | NUR ---
*-* INSURANCE *-* UPDATED CLINICALS AND REVIEWS HAVE BEEN FAXED TO: JOSEFA VICENTE: CARLOS ALBERTO P- [phone] F- [phone]........REVIEW/CLINICAL
--- NOTE | 2018-06-06 15:55 | General Progress Note ---
Assessment/Plan Assessment: Assessment and Recs: # Temporal lobe lesion, on. Low-density lesion in the left temporal region is identified. MRI of the braim with intravenous contrast suggested for further assessmen --> as per neurology evaluation, Dr. Chaves consulted --> in addition, on antiepileptic medications for patient's seizures --> restart meds as needed --> on comfort care # Hyperproteinemia, could be 2/2 inflammatory process versus r/o myeloma or other protein secretory disease --> at this time, minimize extesnive lab tests but obtain a spep # Subarachnoid bleed w/ Subdural hematoma with New onset seizure --> as per neuro eval # ESRD requiring HD --> patient and his family have been refusing HD --> comofrt care measures unless notified otherwise # Hyponatremia as per renal # Comfort care The timing of this note does not necessarily reflect the time of the patient was seen. Greatly appreciate consultation! Subjective Constitutional: Denies: no symptoms, chills, diaphoresis, fever, malaise, weakness, other HEENT: Denies: no symptoms, eye pain, blurred vision, tearing, double vision, ear pain, ear discharge, nose pain, nose congestion, throat pain, throat swelling, mouth pain, mouth swelling, other Cardiovascular: Denies: no symptoms, chest pain, edema, irregular heart rate, lightheadedness, palpitations, syncope, other Respiratory: Denies: no symptoms, cough, orthopnea, shortness of breath, SOB with excertion, SOB at rest, sputum, stridor, wheezing, other Neurologic/Psychiatric: Denies: no symptoms, anxiety, depressed, emotional problems, headache, numbness, paresthesia, pre-existing deficit, seizure, tingling, tremors, weakness, other Endocrine: Denies: no symptoms, excessive sweating, flushing, intolerance to cold, intolerance to heat, increased hunger, increased thirst, increased urine, unexplained weight gain, unexplained weight loss, other Hematologic/Lymphatic: Denies: no symptoms, anemia, easy bleeding, easy bruising, other Allergies: Coded Allergies: No Known Allergies (Unverified , 06/04/18) Subjective 06/05: on comfort care, no events noted, on ivf 06/06: on dilaudid prn, comofrt care, saw and son in the room this am Objective Last 24 Hour Vital Signs Date Time Temp Pulse Resp B/P (MAP) Pulse Ox O2 Delivery O2 Flow Rate FiO2 06/06/18 12:00 97.8 91 18 153/80 (104) 100 06/06/18 09:10 Nasal Cannula 3.0 06/06/18 08:16 80 18 99 Nasal Cannula 3.0 32 06/06/18 08:06 64 16 96 Nasal Cannula 3.0 32 06/06/18 08:00 97.3 93 18 159/94 (115) 99 06/06/18 04:00 97.8 92 18 151/86 (107) 99 06/06/18 00:02 75 18 97 Nasal Cannula 3.0 32 06/06/18 00:00 97.8 87 17 155/83 (107) 97 06/05/18 23:55 32 06/05/18 23:52 72 16 96 Nasal Cannula 3.0 32 06/05/18 21:00 Nasal Cannula 3.0 06/05/18 20:00 97.8 86 17 154/81 (105) 99 06/05/18 16:00 97.3 88 18 153/86 (108) 100 Intake and Output 06/05/18 06/06/18 18:59 06:59 Intake Total 100 ml Balance 100 ml IV Total 100 ml # Bowel Movements 1 1 Height (Feet): 5 Height (Inches): 5.00 Weight (Pounds): 140 Objective tation: reviewed, normal General Appearance: alert, other - nonverbal Head: normocephalic Eyes: bilateral eye normal inspection, fixed pupils ENT: normal ENT inspection Neck: normal inspection Resp: chest non-tender, lungs clear, normal breath s CV: regular rate, rhythm, no edema GI: normal inspection Genitourinary: no CVA tenderness Neurologic: other - fixed gaze to right Psychiatric: other - nonverbal Skin: normal inspection Lymphatic: normal inspection Cezar Eller MD Jun 06, 2018 15:55
[2018-06-06 16:00] VITALS: BP 156/74
--- NOTE | 2018-06-06 16:09 | NUR ---
RESPIRATORY NOTE: NT suctioned pt @1545 per auscultation, revealing mild rhonchi. Pt unable to spontaneously expectorate. Mucus was somewhat thick, red, blood-tinged, and copious. Rn: yanni aware. 02sat wnl/>92%. Son at bedside during procedure. Will continue to closely monitor.
[2018-06-06] MEDS: HYDROmorphone 1mg/ml Carpuject IVP PRN ×2 (16:36→21:30)
--- NOTE | 2018-06-06 18:09 | NUR ---
NURSE NOTES: pt was noted to have bright red phlegm when RT suctioned pt. RN informed Dr. Murry about pt's new condition. At this point, family doesn't want any invasive procedure nor bronchoscopy. Per Dr. Murry, family only wants comfort measures so can't do anything for hemoptysis because of family wishes. HOB elevated, suctioned as needed. Family member at bedside. Will continue to monitor
--- NOTE | 2018-06-06 18:24 | Cardiology Report ---
APPROVED REPORT EKG Measurement Heart [id number] Sinus bradycardia with sinus arrhythmia with 1st degree AV block Possible Left atrial enlargement Nonspecific intraventricular block Nonspecific T wave abnormality Abnormal ECG
--- NOTE | 2018-06-06 19:23 | NUR ---
HAND-OFF: Report given to PATTI Hancock.
[2018-06-06 20:00] VITALS: BP 173/70
--- NOTE | 2018-06-06 20:00 | NUR ---
NURSE NOTES: Received report from Gauri Durand RN. Patient on comfort measures. On nasal cannula. IV intact, patent, and infusing TKO. Family at bedside. Bed in lowest position with call light in reach. Will continue with plan of care.
--- NOTE | 2018-06-06 21:52 | General Progress Note ---
Assessment/Plan Problem List: (1) Subdural hematoma ICD Codes: S06.5X9A - Traumatic subdural hemorrhage with loss of consciousness of unspecified duration, initial encounter SNOMED: 998278479 (2) Subarachnoid bleed ICD Codes: I60.9 - Nontraumatic subarachnoid hemorrhage, unspecified SNOMED: 842187212 (3) New onset seizure ICD Codes: R56.9 - Unspecified convulsions SNOMED: 32239742 (4) Hyperglycemia ICD Codes: R73.9 - Hyperglycemia, unspecified SNOMED: 88117818 (5) ESRD (end stage renal disease) ICD Codes: N18.6 - End stage renal disease SNOMED: 94790858 Status: unchanged Assessment: family doesnt want anything aggressive done they dont want any procedures done either esrd .family doesnt want diaylsis will dc to wherever family wants subdural hematoma no siezure today pain management per dr watson neuro is dr munguia Subjective ROS Limited/Unobtainable: Yes Allergies: Coded Allergies: No Known Allergies (Unverified , 06/04/18) Objective Last 24 Hour Vital Signs Date Time Temp Pulse Resp B/P (MAP) Pulse Ox O2 Delivery O2 Flow Rate FiO2 06/06/18 20:00 95 Nasal Cannula 2.0 28 06/06/18 20:00 Nasal Cannula 2.0 28 06/06/18 20:00 68 18 Nasal Cannula 2.0 28 06/06/18 17:06 98.1 06/06/18 16:00 98.1 70 18 156/74 (101) 100 06/06/18 12:00 97.8 91 18 153/80 (104) 100 06/06/18 09:10 Nasal Cannula 3.0 06/06/18 08:16 80 18 99 Nasal Cannula 3.0 32 06/06/18 08:06 64 16 96 Nasal Cannula 3.0 32 06/06/18 08:00 97.3 93 18 159/94 (115) 99 06/06/18 04:00 97.8 92 18 151/86 (107) 99 06/06/18 00:02 75 18 97 Nasal Cannula 3.0 32 06/06/18 00:00 97.8 87 17 155/83 (107) 97 06/05/18 23:55 32 06/05/18 23:52 72 16 96 Nasal Cannula 3.0 32 Intake and Output 4/15/19 4/16/19 18:59 06:59 Intake Total 100 ml Balance 100 ml IV Total 100 ml # Bowel Movements 1 1 Height (Feet): 5 Height (Inches): 5.00 Weight (Pounds): 140 Cardiovascular: normal rate Respiratory/Chest: lungs clear Abdomen: soft Nima Murry MD Jun 06, 2018 21:52
--- NOTE | 2018-06-06 23:51 | Cardiology Progress Note ---
Assessment/Plan Assessment/Plan The patient is seen and examined, full consult note will be dictated soon. Objective Last 24 Hour Vital Signs Date Time Temp Pulse Resp B/P (MAP) Pulse Ox O2 Delivery O2 Flow Rate FiO2 06/06/18 20:00 95 Nasal Cannula 2.0 28 06/06/18 20:00 Nasal Cannula 2.0 28 06/06/18 20:00 68 18 Nasal Cannula 2.0 28 06/06/18 17:06 98.1 06/06/18 16:00 98.1 70 18 156/74 (101) 100 06/06/18 12:00 97.8 91 18 153/80 (104) 100 06/06/18 09:10 Nasal Cannula 3.0 06/06/18 08:16 80 18 99 Nasal Cannula 3.0 32 06/06/18 08:06 64 16 96 Nasal Cannula 3.0 32 06/06/18 08:00 97.3 93 18 159/94 (115) 99 06/06/18 04:00 97.8 92 18 151/86 (107) 99 06/06/18 00:02 75 18 97 Nasal Cannula 3.0 32 06/06/18 00:00 97.8 87 17 155/83 (107) 97 06/05/18 23:55 32 06/05/18 23:52 72 16 96 Nasal Cannula 3.0 32 Intake and Output 06/05/18 06/06/18 19:00 07:00 Intake Total 100 ml Balance 100 ml IV Total 100 ml # Bowel Movements 1 1 Keanu Medellin MD Jun 06, 2018 23:51
[2018-06-07] VITALS: BP 158/68
[2018-06-07 04:00] VITALS: BP 159/64
[2018-06-07] MEDS: HYDROmorphone 1mg/ml Carpuject IVP PRN ×3 (05:09→21:15)
--- NOTE | 2018-06-07 07:59 | NUR ---
HAND-OFF: Report given to Steph Durand RN.
[2018-06-07 08:00] VITALS: BP 158/65
--- NOTE | 2018-06-07 08:00 | NUR ---
NURSE NOTES: Received patient in bed, oral and nasal suction done. No s/s of pain or discomfort per FLACC pain scale. @ bedside. Bed is in low position and locked. HOB elevated. on oxygen, patient is non-verbal now. left arm precaution for AV shunt.Patient is comfort care. Will continue to monitor for pain. Seizure precaution, side rails padded.
--- NOTE | 2018-06-07 09:55 | NUR ---
Social Work This SW received a consult due to end of life discussion. This Sw met with son, Donnie Pineda ([phone]) and spouse, Elton Valencia ([phone]) who is requesting comfort measures, (Hospice explained). Family explains will take home vs placement if needed (patient has discontinued dialysis eight days ago, according to family expressing concerns patient might not make it to the next destination from the hospital). Emotional support provided to family (currently at bedside).
--- NOTE | 2018-06-07 10:05 | NUR ---
NURSE NOTES: Rn received order from Dr. Murry d/c where ever family wants with home med if clear by Modesta Copeland and Andie any hospice eval ok if family wants. RN spoke to , says she needs to discuss with her sons. Dr. Rockwell said to call Dr. Byers for any respiratory issue.
[2018-06-07] MEDS: levETIRAcetam 500mg/NS100ml 100 ML IVPB SCH ×2 (10:46→20:59)
--- NOTE | 2018-06-07 11:09 | Nephrology Progress Note ---
Assessment/Plan Problem List: (1) ESRD (end stage renal disease) (2) Subdural hematoma (3) CVA (cerebral vascular accident) (4) New onset seizure Plan discussed with Son EVA colunga ordered- more comfortable now DNR Comfort care DC ? Subjective ROS Limited/Unobtainable: Yes Objective Objective Last 24 Hour Vital Signs Date Time Temp Pulse Resp B/P (MAP) Pulse Ox O2 Delivery O2 Flow Rate FiO2 06/07/18 09:00 Nasal Cannula 3.0 06/07/18 08:00 98.0 61 16 158/65 (96) 99 06/07/18 07:44 Nasal Cannula 2.0 28 06/07/18 07:44 94 Nasal Cannula 2.0 28 06/07/18 07:44 45 18 Nasal Cannula 2.0 28 06/07/18 04:00 97.8 64 20 159/64 (95) 99 06/07/18 00:00 98.1 64 20 158/68 (98) 99 06/06/18 21:00 Nasal Cannula 3.0 06/06/18 20:00 95 Nasal Cannula 2.0 28 06/06/18 20:00 98.3 64 20 173/70 (104) 97 06/06/18 20:00 Nasal Cannula 2.0 28 06/06/18 20:00 68 18 Nasal Cannula 2.0 28 06/06/18 17:06 98.1 06/06/18 16:00 98.1 70 18 156/74 (101) 100 06/06/18 12:00 97.8 91 18 153/80 (104) 100 Intake and Output 06/06/18 06/07/18 19:00 07:00 # Bowel Movements 1 Height (Feet): 5 Height (Inches): 5.00 Weight (Pounds): 139 General Appearance: no apparent distress, lethargic Cardiovascular: other - variable Respiratory/Chest: decreased breath sounds Abdomen: distended Haresh Christianson MD Jun 07, 2018 11:09
[2018-06-07 12:00] VITALS: BP 159/67
--- NOTE | 2018-06-07 14:09 | NUR ---
[facility] SI:SUBDURAL HEMATOMA . SUBARACHNOID BLEED VS: BP 159/67, P 45, T 97.9, RR 20, SpO2 100 on 2.0L O2 IS:LEVETIRACETAM 100ml IVPB DILAUDID 1mg IVP MED/SURG STATUS
--- NOTE | 2018-06-07 14:31 | Pulmonology Progress Note ---
Assessment/Plan Assessment/Plan Pulmonary Consultation HPI: The patient is an unfortunate 72-year-old male with subdural and sub arachnoid hemorrhage, has history of end-stage renal disease on hemodialysis, who was brought by EMS status post seizure and noted altered mental status The patient's family has requested comfort measures. PAST MEDICAL HISTORY: 1. Hypertension. 2. Diabetes. 3. End-stage renal disease, on hemodialysis. PAST SURGICAL HISTORY: Dialysis access placement. FAMILY HISTORY: Noncontributory. SOCIAL HISTORY: No smoking, alcohol, or drug use. REVIEW OF SYSTEMS: Unobtainable. MEDICATIONS: Reviewed and reconciled. LABORATORY DATA NOTED: Sodium 124, potassium 7.2, chloride 86, bicarb 22, BUN 114, creatinine of 7.7, glucose of 324, calcium of 8.9. Alkaline phosphatase 146. Total protein 9.8. Troponin 0.06. CBC shows WBC of 10, CT Head noted PHYSICAL EXAMINATION: VITAL SIGNS NOTED, comfortable HEENT: Pupils are reactive. NECK: No JVD. HEART: RRR. LUNGS: Decreased breath sounds. ABDOMEN: Positive bowel sounds. EXTREMITIES: Positive for edema. DIAGNOSES: 1. Diabetes 2. Severe hyperkalemia. 3. End-stage renal disease, on hemodialysis. 4. Subdural and sub arachnoid hemorrhage 5. Seizure. PLAN: The patient's family has requested comfort care O2 PRN Comfort medications Subjective ROS Limited/Unobtainable: No Allergies: Coded Allergies: No Known Allergies (Unverified , 06/04/18) Objective Last 24 Hour Vital Signs Date Time Temp Pulse Resp B/P (MAP) Pulse Ox O2 Delivery O2 Flow Rate FiO2 06/07/18 12:00 97.9 66 15 159/67 (97) 100 06/07/18 09:00 Nasal Cannula 3.0 06/07/18 08:00 98.0 61 16 158/65 (96) 99 06/07/18 07:44 Nasal Cannula 2.0 28 06/07/18 07:44 94 Nasal Cannula 2.0 28 06/07/18 07:44 45 18 Nasal Cannula 2.0 28 06/07/18 04:00 97.8 64 20 159/64 (95) 99 06/07/18 00:00 98.1 64 20 158/68 (98) 99 06/06/18 21:00 Nasal Cannula 3.0 06/06/18 20:00 95 Nasal Cannula 2.0 28 06/06/18 20:00 98.3 64 20 173/70 (104) 97 06/06/18 20:00 Nasal Cannula 2.0 28 06/06/18 20:00 68 18 Nasal Cannula 2.0 28 06/06/18 17:06 98.1 06/06/18 16:00 98.1 70 18 156/74 (101) 100 Intake and Output 06/06/18 06/07/18 19:00 07:00 # Bowel Movements 1 Current Medications Medications (Trade) Dose Ordered Sig/Montez Route PRN Reason Start Time Stop Time Status Last Admin Dose Admin Albuterol/ Ipratropium (Albuterol/ Ipratropium) 3 ml Q4HRT PRN HHN sob, cough 06/06/18 23:55 06/11/18 23:54 06/06/18 08:06 Hydromorphone HCl (Dilaudid) 1 mg Q4H PRN IVP For Pain 06/06/18 11:30 06/13/18 11:29 06/07/18 05:09 Levetiracetam 100 ml @ 400 mls/hr Q12HR IVPB 06/05/18 09:00 07/04/18 20:59 06/07/18 10:46 Nik Byers MD Jun 07, 2018 14:31
--- NOTE | 2018-06-07 15:25 | NUR ---
*-* INSURANCE *-* UPDATED CLINICALS AND REVIEWS HAVE BEEN FAXED TO: JOSEFA VICENTE: CARLOS ALBERTO P- [phone] F- [phone]........REVIEW/CLINICAL
[2018-06-07] MEDS ORDERED: NS 275ml ONE (15:55)
[2018-06-07 16:00] VITALS: BP 164/69
[2018-06-07] MEDS: Albuterol/Ipratropium 3ml neb HHN PRN (16:16)
--- NOTE | 2018-06-07 17:16 | NUR ---
NURSE NOTES: Patient noted with facial grimacing and restlessness. given Dilaudid as ordered. Respiration is 17. Will continue to monitor.
--- NOTE | 2018-06-07 18:03 | NUR ---
NURSE NOTES: Frequent oral care and suction done, re-position @ 2HR. No skin issues.
--- NOTE | 2018-06-07 18:45 | General Progress Note ---
Assessment/Plan Assessment: Assessment and Recs: # Temporal lobe lesion, on. Low-density lesion in the left temporal region is identified. MRI of the braim with intravenous contrast suggested for further assessment --> as per neurology evaluation, Dr. Chaves consulted --> in addition, on antiepileptic medications for patient's seizures --> on comfort care # Hyperproteinemia, could be 2/2 inflammatory process versus r/o myeloma or other protein secretory disease --> at this time, minimize extesnive lab tests but obtain a spep # Subarachnoid bleed w/ Subdural hematoma with New onset seizure --> as per neuro eval --> likely does have a plt dysfunction # ESRD requiring HD --> patient and his family have been refusing HD --> comofrt care measures unless notified otherwise # Hyponatremia as per renal # Comfort care The timing of this note does not necessarily reflect the time of the patient was seen. Greatly appreciate consultation! Subjective Constitutional: Denies: no symptoms, chills, diaphoresis, fever, malaise, weakness, other HEENT: Denies: no symptoms, eye pain, blurred vision, tearing, double vision, ear pain, ear discharge, nose pain, nose congestion, throat pain, throat swelling, mouth pain, mouth swelling, other Cardiovascular: Denies: no symptoms, chest pain, edema, irregular heart rate, lightheadedness, palpitations, syncope, other Respiratory: Denies: no symptoms, cough, orthopnea, shortness of breath, SOB with excertion, SOB at rest, sputum, stridor, wheezing, other Gastrointestinal/Abdominal: Denies: no symptoms, abdomen distended, abdominal pain, black stools, tarry stools, blood in stool, constipated, diarrhea, difficulty swallowing, nausea, poor appetite, poor fluid intake, rectal bleeding , vomiting, other Genitourinary: Denies: no symptoms, burning, discharge, frequency, flank pain, hematuria, incontinence, pain, urgency, other Neurologic/Psychiatric: Denies: no symptoms, anxiety, depressed, emotional problems, headache, numbness, paresthesia, pre-existing deficit, seizure, tingling, tremors, weakness, other Endocrine: Denies: no symptoms, excessive sweating, flushing, intolerance to cold, intolerance to heat, increased hunger, increased thirst, increased urine, unexplained weight gain, unexplained weight loss, other Hematologic/Lymphatic: Denies: no symptoms, anemia, easy bleeding, easy bruising, other Allergies: Coded Allergies: No Known Allergies (Unverified , 06/04/18) Subjective 06/05: on comfort care, no events noted, on ivf 06/06: on dilaudid prn, comofrt care, saw and son in the room this am 06/07: no events, no f/c, no night sweats noted Objective Last 24 Hour Vital Signs Date Time Temp Pulse Resp B/P (MAP) Pulse Ox O2 Delivery O2 Flow Rate FiO2 06/07/18 16:30 67 20 100 Nasal Cannula 3.0 32 06/07/18 16:16 63 16 100 Nasal Cannula 3.0 32 06/07/18 16:00 98.1 62 17 164/69 (100) 100 06/07/18 12:00 97.9 66 15 159/67 (97) 100 06/07/18 09:00 Nasal Cannula 3.0 06/07/18 08:00 98.0 61 16 158/65 (96) 99 06/07/18 07:44 Nasal Cannula 2.0 28 06/07/18 07:44 94 Nasal Cannula 2.0 28 06/07/18 07:44 45 18 Nasal Cannula 2.0 28 06/07/18 04:00 97.8 64 20 159/64 (95) 99 06/07/18 00:00 98.1 64 20 158/68 (98) 99 06/06/18 21:00 Nasal Cannula 3.0 06/06/18 20:00 95 Nasal Cannula 2.0 28 06/06/18 20:00 98.3 64 20 173/70 (104) 97 06/06/18 20:00 Nasal Cannula 2.0 28 06/06/18 20:00 68 18 Nasal Cannula 2.0 28 Intake and Output 06/06/18 06/07/18 19:00 07:00 # Bowel Movements 1 Height (Feet): 5 Height (Inches): 5.00 Weight (Pounds): 139 Objective tation: reviewed, normal General Appearance: alert, other - nonverbal Head: normocephalic Eyes: bilateral eye normal inspection, fixed pupils ENT: normal ENT inspection Neck: normal inspection Resp: chest non-tender, lungs clear, normal breath s CV: regular rate, rhythm, no edema GI: normal inspection Genitourinary: no CVA tenderness Neurologic: other - fixed gaze to right Psychiatric: other - nonverbal Skin: normal inspection Lymphatic: normal inspection Cezar Eller MD Jun 07, 2018 18:45
--- NOTE | 2018-06-07 19:30 | NUR ---
HAND-OFF: Report given to Aura.
[2018-06-07 20:00] VITALS: BP 141/55
--- NOTE | 2018-06-07 20:00 | NUR ---
NURSE NOTES: PATIENT IN BED, DNR/DNI, COMFORT CARE ONLY. ON 3L O2 VIA NC, O2SAT AT 99%. RFA IV INTACT, PATENT. BED IN LOWEST POSITION, LOCKED, ALARMS ON. CALL LIGHT IN REACH. SIDE RAILS PADDED. SLEEPING WITHOUT S/SX OF DISTRESS. FAMILY BY BESIDE. WILL CONT MONITOR THROUGH OUT THE SHIFT.
--- NOTE | 2018-06-07 21:19 | NUR ---
PRONOUNCEMENT: No Code. Called to pronounce patient. Absence of spontaneous respirations, no cardiac or breath sounds on auscultation. Pupils fixed and dilated. No carotid pulse or chest movement. Patient at 211806/07/2018. Raza Dickerson notified PER Aura Randolph Rn. Family was notified at .
--- NOTE | 2018-06-07 22:45 | Consultation ---
DATE OF CONSULTATION: 06/05/2018 CARDIOLOGY CONSULTATION CONSULTING PHYSICIAN: Keanu Medellin M.D. REFERRING PHYSICIAN: Nima Murry M.D. REASON FOR CONSULTATION: Management of elevated troponin I level. HISTORY OF PRESENT ILLNESS: The patient is a very unfortunate 72-year-old gentleman, who was brought in by EMS following seizure activity. According to the patient's , who was at bedside, the patient was noticed to have been altered around 4 a.m. on June 04. The last time that the patient was known to be well was around midnight. The patient according to EMS had a generalized tonic-clonic seizure activity. At the presence of EMS, he was given Versed. Upon arrival to the emergency department, he was not responsive and had a gaze to the right. There was no prior history of seizures. The patient however has history of end-stage renal disease, on dialysis. Apparently, the patient missed two dialysis sessions. Upon arrival to the emergency department, the patient was not in respiratory distress. However, the blood pressure was 148/90 mmHg and heart rate was 86. He was afebrile. Initial laboratory findings showed a potassium of 7.2, sodium of 124, and BUN and creatinine of 114 and 10.7 respectively. Troponin I level was elevated at 0.06. The patient was admitted to intensive care unit for further evaluation and management. Cardiology consultation was made at request of Dr. Murry for evaluation and management of a troponin level. In the emergency department, the patient undergoes a CT of head, which shows subarachnoid hemorrhage. A 12-lead electrocardiogram was significant for sinus rhythm with no acute ischemic changes. PAST MEDICAL HISTORY: 1. Hypertension. 2. End-stage renal disease on hemodialysis. SOCIAL HISTORY: No prior history of tobacco, alcohol, or illicit drug use. PAST SURGICAL HISTORY: AV shunt placement. ALLERGIES: No known drug allergies. FAMILY HISTORY: No premature coronary artery disease in first-degree relatives. MEDICATIONS: List of medications at home, labetalol 300 mg p.o. twice daily, nifedipine 30 mg p.o. q. 8 h., and Seroquel 50 mg p.o. daily. REVIEW OF SYSTEMS: HEENT: Denies any headache, diplopia, blurred vision, although he has seizure activity. CONSTITUTIONAL: Denies any fever, chills, night sweats, or weight loss. CARDIOVASCULAR: Denies any chest pain, shortness breath, PND, orthopnea, or leg swelling. PULMONARY: Denies any cough, hemoptysis, or wheezing. GASTROINTESTINAL: Denies any nausea, vomiting, diarrhea, constipation, abdominal pain, or GI bleed. GENITOURINARY: Denies any hematuria, dysuria, or incontinence. NEUROLOGY: Somewhat altered, mostly confusion. Denies any signs of lateralization. Denies any sensory deficit or altered speech. Denies any sensory deficit or motor dysfunction. PHYSICAL EXAMINATION: VITAL SIGNS: Blood pressure at time of arrival to the hospital 148/90, respirations 20, pulse of 86, temperature of 98.1 degrees Fahrenheit, and O2 saturation 98% on room air. GENERAL: The patient is a very unfortunate 72-year-old gentleman, in no apparent respiratory distress. Somewhat confused. HEENT: Atraumatic and normocephalic. Anicteric. Pupils are equal, round, and reactive to light and accommodation. Extraocular muscles intact. NECK: JVP is less than 5 cm. No carotid bruit. Carotid upstroke is 2+ bilaterally. CARDIOVASCULAR: Normal S1, S2. Regular rate and rhythm. No murmurs, gallops, or rubs. LUNGS: Clear to auscultation bilaterally. ABDOMEN: Soft, nontender, and nondistended. No hepatosplenomegaly. Positive bowel sounds. EXTREMITIES: No evidence of edema, clubbing, or cyanosis. LABORATORY FINDINGS: Sodium is 124, potassium is 7.2, chloride 86, bicarbonate 22, BUN of 114, creatinine 10.7, glucose 324. Troponin I 0.060. Triglyceride 91, cholesterol 149, LDL of 83, and HDL of 59. INR is 1.1. A 12-lead electrocardiogram showed sinus bradycardia with sinus arrhythmia, first-degree AV block, left atrial enlargement, nonspecific intraventricular block, nonspecific T-wave abnormalities. ASSESSMENT AND PLAN: The patient is a very unfortunate 72-year-old gentleman, seen in Cardiology consultation. 1. Slight elevation of troponin I level in this patient most likely secondary to troponin leak associated with end-stage renal disease. At this time, given the fact that the patient's wishes is not to proceed any dialysis. I will not consider any further cardiac workup. 2. Altered level of consciousness most likely due to uremic encephalopathy. 3. History of hypertension. Currently off all medication. Hypertension is considered as stage II. 4. Comfort care. I would like to thank Dr. Murry, for allowing me to participate in the care of this patient. Keanu Mdeellin M.D. DR: MARYANNE JOB#: [id number] CC:
--- NOTE | 2018-06-07 23:25 | General Progress Note ---
Assessment/Plan Problem List: (1) Subdural hematoma ICD Codes: S06.5X9A - Traumatic subdural hemorrhage with loss of consciousness of unspecified duration, initial encounter SNOMED: 580255353 (2) Subarachnoid bleed ICD Codes: I60.9 - Nontraumatic subarachnoid hemorrhage, unspecified SNOMED: 918218460 (3) New onset seizure ICD Codes: R56.9 - Unspecified convulsions SNOMED: 88471962 (4) Hyperglycemia ICD Codes: R73.9 - Hyperglycemia, unspecified SNOMED: 10482470 (5) ESRD (end stage renal disease) ICD Codes: N18.6 - End stage renal disease SNOMED: 39722963 Assessment: comfort measures only Subjective Allergies: Coded Allergies: No Known Allergies (Unverified , 06/04/18) Objective Last 24 Hour Vital Signs Date Time Temp Pulse Resp B/P (MAP) Pulse Ox O2 Delivery O2 Flow Rate FiO2 06/07/18 20:05 97 Nasal Cannula 3.0 32 06/07/18 20:05 64 18 Nasal Cannula 3.0 32 06/07/18 20:05 Nasal Cannula 3.0 32 06/07/18 20:00 99.0 66 24 141/55 (83) 98 06/07/18 16:30 67 20 100 Nasal Cannula 3.0 32 06/07/18 16:16 63 16 100 Nasal Cannula 3.0 32 06/07/18 16:00 98.1 62 17 164/69 (100) 100 06/07/18 12:00 97.9 66 15 159/67 (97) 100 06/07/18 09:00 Nasal Cannula 3.0 06/07/18 08:00 98.0 61 16 158/65 (96) 99 06/07/18 07:44 Nasal Cannula 2.0 28 06/07/18 07:44 94 Nasal Cannula 2.0 28 06/07/18 07:44 45 18 Nasal Cannula 2.0 28 06/07/18 04:00 97.8 64 20 159/64 (95) 99 06/07/18 00:00 98.1 64 20 158/68 (98) 99 Intake and Output 06/06/18 06/07/18 18:59 06:59 # Bowel Movements 1 Height (Feet): 5 Height (Inches): 5.00 Weight (Pounds): 139 Nima Murry MD Jun 07, 2018 23:25
--- NOTE | 2018-06-07 23:52 | Cardiology Progress Note ---
Assessment/Plan Assessment/Plan The patient is seen and examined, full consult note will be dictated soon. Objective Last 24 Hour Vital Signs Date Time Temp Pulse Resp B/P (MAP) Pulse Ox O2 Delivery O2 Flow Rate FiO2 06/07/18 20:05 97 Nasal Cannula 3.0 32 06/07/18 20:05 64 18 Nasal Cannula 3.0 32 06/07/18 20:05 Nasal Cannula 3.0 32 06/07/18 20:00 99.0 66 24 141/55 (83) 98 06/07/18 16:30 67 20 100 Nasal Cannula 3.0 32 06/07/18 16:16 63 16 100 Nasal Cannula 3.0 32 06/07/18 16:00 98.1 62 17 164/69 (100) 100 06/07/18 12:00 97.9 66 15 159/67 (97) 100 06/07/18 09:00 Nasal Cannula 3.0 06/07/18 08:00 98.0 61 16 158/65 (96) 99 06/07/18 07:44 Nasal Cannula 2.0 28 06/07/18 07:44 94 Nasal Cannula 2.0 28 06/07/18 07:44 45 18 Nasal Cannula 2.0 28 06/07/18 04:00 97.8 64 20 159/64 (95) 99 06/07/18 00:00 98.1 64 20 158/68 (98) 99 Intake and Output 06/06/18 06/07/18 18:59 06:59 # Bowel Movements 1 Keanu Medellin MD Jun 07, 2018 23:52
--- NOTE | 2018-06-07 23:55 | NUR ---
NURSE NOTES: PT AT 2118, PRONOUNCED BY [employer] [employer] KELVIN WYNNE. FAMILY BY BEDSIDE. NOTIFIED DR HERNANDEZ VIA PHONE. [facility] NOTIFIED. POST MORTEM CARE GIVEN, MORTUARY PICKED UP BODY AT 2350.
--- NOTE | 2018-06-08 11:21 | Discharge Summary ---
Discharge Summary Discharge Summary _ DATE OF ADMISSION: 06/04/2018 DATE OF DISCHARGE: 06/07/2018 BRIEF SUMMARY: Patient is a 72-year-old male, who was taken to ED by EMS status post seizure. EMS noted patient had general tonic-clonic clonic seizure activity and was given Versed. Patient did not have any history of seizure. He had a history of end-stage renal disease and had missed last 2 dialysis sessions. He had an AV shunt on the left arm. Upon arrival to ED, patient was not responsive. There was noted right gaze. Blood pressure was 148/90, pulse rate 86, he was saturating 98% on room air. Blood work showed no leukocytosis, hemoglobin and hematocrit were stable. There was evidence of hyponatremia and hyperkalemia. Sodium level was 124, potassium 7.2, chloride 86. BUN was 114, creatinine 10.7. Troponin was 0.6. EKG was in normal sinus rhythm. CT of the head showed subarachnoid hemorrhage along the fissure for the interhemispheric fissure as well as left temporal region. There was parafalcine subdural hematoma. He was given IV Keppra. He was admitted for subarachnoid bleed, subdural hematoma and new onset of seizure. Patient has history of end-stage renal disease and hemodialysis. Initially, family wanted to continue with dialysis, a stat hemodialysis was ordered. Electrical Experimental Mechanic was consulted. Patient was in need of urgent dialysis for hyperkalemia. Family declined. Family stated it is patient's wishes to stop dialysis, reason on why he did not show up for the last 2 dialysis sessions. Family stated they would like to respect patient's wishes and withhold dialysis. Emergent dialysis order was canceled. Neurologist was consulted. He was continued on Keppra. Placed on seizure precautions. Blood glucose was monitored. Troponin elevation secondary to troponin leak. CT scan was reviewed by neurologist. No further workup was necessary per neurologist. He was given comfort care. Patient eventually . FINAL DIAGNOSES: Subarachnoid bleed with subdural hematoma New onset seizure Hyperglycemia End-stage renal disease on hemodialysis Temporal lobe lesion Hyperproteinemia, could be secondary to inflammatory process Hyponatremia Slight elevation of troponin likely secondary to troponin leak associated with end-stage renal disease Comfort care/palliative care DISPOSITION: Patient . I have been assigned to complete a discharge summary on this account, I was not involved with the patient's management. Candice Lema NP Jun 08, 2018 11:21
--- NOTE | 2018-06-08 11:51 | NUR ---
-* INSURANCE *-* DISCHARGE SUMMARY HAS BEEN FAXED TO: [facility] VICENTE: CARLOS ALBERTO P- [phone] F- [phone]........REVIEW/CLINICAL
== END 2018-06-07 21:19 | disposition expired | DRG 64 ==
LOC: EDBD 04:53 → EMR 05:00 → EDBEDREQ 05:16 → 2W 06:10 → EDBEDREQSVC 06:23 → EDBEDREQ 06:23 → 4E 06-05 03:39
DX: I62.01 Nontraumatic acute subdural hemorrhage (principal); N18.6 End stage renal disease; I12.0 Hypertensive chronic kidney disease with stage 5 chronic kidney disease or end stage renal disease; E87.1 Hypo-osmolality and hyponatremia; C79.9 Secondary malignant neoplasm of unspecified site; I60.9 Nontraumatic subarachnoid hemorrhage, unspecified; Z51.5 Encounter for palliative care; E11.65 Type 2 diabetes mellitus with hyperglycemia; Z66 Do not resuscitate; F03.90 Unspecified dementia, unspecified severity, without behavioral disturbance, psychotic disturbance, mood disturbance, and anxiety; Z99.2 Dependence on renal dialysis; Z91.81 History of falling; R56.9 Unspecified convulsions; E88.09 Other disorders of plasma-protein metabolism, not elsewhere classified; Z85.53 Personal history of malignant neoplasm of renal pelvis; E11.22 Type 2 diabetes mellitus with diabetic chronic kidney disease; N18.9 Chronic kidney disease, unspecified; E87.5 Hyperkalemia; H61.21 Impacted cerumen, right ear; R00.1 Bradycardia, unspecified
CPT/HCPCS: 36415; 70450; 71045; 80053; 80061; 82248; 84165; 84484; 85007; 85025; 85610; 85730; 93005; 94640; 94664; 94760; 96374; 99285; J7620